=== PATIENT | male | born 1975 | race Caucasian/White ===

== ENCOUNTER 2016-07-16 22:23 | Emergency (ER) | payer SELFPAY ==
[2016-07-17] MEDS ORDERED: MOTRIN PO ONE (05:02)
--- NOTE | 2016-07-17 05:07 | Emergency Department Report ---
HPI - General Chief Complaint: Upper Respiratory Infection Time Seen by Provider: 07/17/16 05:01 - HPI HPI: 41-year-old male comes in for complaint of cough headache today. Patient saw his primary care doctor 15 days ago was diagnosed with a virus was started on amoxicillin with spacer reports he is completed. Now the patient comes in complaining of generalized pain complains of diarrhea. Patient complains of chest soreness. 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 He will stop working rest a while and in the chest soreness with go away. Patient then start back working and started having chest soreness again. Patient denies any nausea no vomiting. He reports some diarrhea since he started the amoxicillin. ED Past Medical Hx - Past Medical History Previous Medical History?: No Hx Congestive Heart Failure: No Hx Diabetes: No Hx Asthma: No Hx COPD: No - Surgical History Past Surgical History?: No - Social History Smoking Status: Never Smoker Substance Use Type: None - Medications Home Medications: Home Medications Medication Instructions Recorded Confirmed Last Taken Type Pantoprazole [Protonix TAB] 20 mg PO QDAY #30 tablet.dr 02/13/16 Unknown Rx traMADol [Ultram 50 MG tab] 50 mg PO Q8H PRN #15 tablet 02/14/16 Unknown Rx Ibuprofen [Motrin 800 MG tab] 800 mg PO Q8HR #30 tablet 07/17/16 Unknown Rx ED Review of Systems ROS: Stated complaint: CONSTANTIN Other details as noted in HPI Respiratory: cough Musculoskeletal: myalgia Neurological: headache Physical Exam - Physical Exam Vital Signs: Vital Signs 07/16/16 22:37 Temperature 98.0 F Pulse Rate 68 Respiratory 20 Rate Blood Pressure 138/100 O2 Sat by Pulse 99 Oximetry General: GENERAL: Alert and oriented x3, no apparent distress, Normal Gait, atraumatic. HEAD: Head is normocephalic and a-traumatic. EYES: Extra ocular muscles are intact. Pupils are equal, round, and reactive to light and accommodation. LUNGS: Symetrical with respiration, No wheezing, no rales or crackles, CTAB. HEART: S1, S2 present, regular rate and rhythm without murmur, no rubs, no gallops. ABDOMEN: No organomegaly was noted,Positive bowel sounds, soft, and non- distended. . Nontender to palpation on all Quadrants, NO CVA tenderness. EXTREMITIES/MUSCULOSKELETAL: No cyanosis, clubbing, rash, lesions or edema. Full ROM bilaterally. UE/LE Pulses 2+ bilaterally. LE and UE 5+ strength bilaterally NEUROLOGIC: No focal Deficit, Cranial nerves II through XII are grossly intact. No loss of sensation, No facial droop, PSYCHIATRIC: Mood is congruent with affect, denies suicidal or homicidal ideations. SKIN: Warm and dry, No lesions, No ulceration or induration present ED Course Vital Signs 07/16/16 22:37 Temperature 98.0 F Pulse Rate 68 Respiratory 20 Rate Blood Pressure 138/100 O2 Sat by Pulse 99 Oximetry ED Medical Decision Making - Medical Decision Making Patient's been evaluated by this provider in fast track. I had nurses Kelsy did the translating. Discussed with patient and the diarrhea is one of the side effects of amoxicillin. To drink plenty of fluids. I reassured him that his heart rate is within normal limits. There is no signs of dehydration. Also discussed the patient that his line of work which is a construction project coordinator sometimes exhibits side effects of sore muscles overuse. Reassured patient that this is most likely the reason why he has some chest soreness. Discussed with patient that he can take Motrin or Tylenol for his headaches and body soreness. Reassured patient that he has been on antibiotics which should just have treated the infection. Inform patient he needs to follow-up with his primary care provider Critical care attestation.: If time is entered above; I have spent that time in minutes in the direct care of this critically ill patient, excluding procedure time. ED Disposition Clinical Impression: URI with cough and congestion Disposition: DISCHARGED TO HOME OR SELFCARE Is pt being admited?: No Does the pt Need Aspirin: No Condition: Stable Instructions: Upper Respiratory Infection (ED) Additional Instructions: Please take Tylenol or Motrin for your chest soreness and headache. Follow-up with her primary care provider. Prescriptions: Ibuprofen [Motrin 800 MG tab] 800 mg PO Q8HR #30 tablet Referrals: PRIMARY CAREMD [Primary Care Provider] - 3-5 Days Forms: Work/School Release Form(ED)
[2016-07-17 05:34] VITALS: BP 124/74
== END 2016-07-17 05:25 | disposition home or self-care (01) ==
LOC: ED 22:23
DX: J06.9 Acute upper respiratory infection, unspecified (principal); R09.81 Nasal congestion
CPT/HCPCS: 99282